=== PATIENT | female | born 1965 | race African-American/Black ===

== ENCOUNTER 2017-06-03 19:04 | Emergency (ER) | payer MEDICAID ==
[~2017-06-03] VITALS: Ht 160 cm; Wt 65.8 kg
[~2017-06-03 19:04] MED LIST: CLARITIN10 M1 ORAL; CLINDAMYCIN HC150 MG ORAL; MULTIVITAMINS1 EAC2 ORAL; NKM; RANITIDINE HCL150 MG ORAL
[2017-06-03 19:23] VITALS: BP 116/74
--- NOTE | 2017-06-03 19:41 | Emergency Room Report ---
History of Present Illness General Chief Complaint: Pain Source: Patient Present Illness HPI 52-year-old female presents to the emergency department complaining of 5/10 in severity localized sharp upper back pain that is exacerbated upon coughing, sneezing or taking a deep breath. Patient denies tenderness to palpation she denies fevers, chills she does report recent upper respiratory infection with moderate coughing. Patient denies fevers, chills, rashes, SOB or wheezing. Denies CP, Palpitations, LOC, AMS, dizziness, Changes in Vision, Sensation, paresthesias, or a sudden severe headache. Allergies: Coded Allergies: No Known Allergies (Unverified , 11/20/15) Patient History Past Medical History: see triage record Past Surgical History: none Pertinent Family History: none Now: No Reviewed Nursing Documentation: PMH: Agreed, PSxH: Agreed Nursing Documentation-PMH Past Medical History: No History, Except For Review of Systems All Other Systems: negative except mentioned in HPI Physical Exam Vital Signs Date Time Temp Pulse Resp B/P (MAP) Pulse Ox O2 Delivery O2 Flow Rate FiO2 06/03/17 19:08 97.3 72 18 116/74 100 Room Air Sp02 EP Interpretation: reviewed, normal General Appearance: no apparent distress, alert, GCS 15, non-toxic Head: normocephalic, atraumatic Eyes: bilateral eye normal inspection, bilateral eye PERRL ENT: hearing grossly normal, normal voice Neck: full range of motion Respiratory: chest non-tender, lungs clear, normal breath sounds, no respiratory distress, no accessory muscle use, no wheezing, speaking full sentences Cardiovascular #1: regular rate, rhythm, normal capillary refill Genitourinary: normal inspection, no CVA tenderness Musculoskeletal: back normal, gait/station normal, normal range of motion, non- tender Neurologic: alert, oriented x3, responsive, motor strength/tone normal, sensory intact, speech normal Skin: normal color, no rash, warm/dry, well hydrated Medical Decision Making PA Attestation Dr. Donohue is my supervising Physician whom patient management has been discussed with. Diagnostic Impression: Primary Impression: Chest wall muscle strain Qualified Codes: S29.011A - Strain of muscle and tendon of front wall of thorax, initial encounter ER Course 52-year-old female presents to the emergency department complaining of 5/10 in severity localized sharp upper back pain that is exacerbated upon coughing, sneezing or taking a deep breath. Patient denies tenderness to palpation she denies fevers, chills she does report recent upper respiratory infection with moderate coughing. Patient denies fevers, chills, rashes, SOB or wheezing. Denies CP, Palpitations, LOC, AMS, dizziness, Changes in Vision, Sensation, paresthesias, or a sudden severe headache. Ddx considered but are not limited to URI, pneumonia, PE, strep pharyngitis, meningitis, muscle strain, WA, PE just to name a few. Vital signs: Pt. is afebrile, the remaining VS are WNL H&PE are most consistent with - muscular strain of the chest wall from coughing. No cardiac rf's, no PE findings to suggest embolism. pt is NAD, non-toxic in appearance, in no respiratory distress. no meningeal signs, oropharynx is not involved, no evidence of bacterial infection at this time. ORDERS: none required at this time, the diagnosis is clinical ED INTERVENTIONS: -Toradol IM --PT. EDUCATION: Discussed antibiotic resistance with inappropriate prescribing of antibiotics for viral illnesses. Discussed signs and symptoms to indicate viral illness versus bacterial illness. DISCHARGE: At this time pt. is stable for d/c to home. Will provide printed patient care instructions, and any necessary prescriptions. Care plan and follow up instructions have been discussed with the patient prior to discharge. Last Vital Signs Date Time Temp Pulse Resp B/P (MAP) Pulse Ox O2 Delivery O2 Flow Rate FiO2 06/03/17 19:23 97.3 84 18 116/74 100 Room Air Disposition: HOME, SELF-CARE Condition: Stable Scripts Lidocaine (Lidoderm) 1 Each Adh..patch 1 PATCH TOPIC Q12HR, #20 PATCH 0 Refills Patch(es) may remain in place for up to 12 hours in any 24-hour period. Prov: Karlee Neff P.A. 06/03/17 Codeine/Promethazine Hcl* (PROMETHAZINE-CODEINE SYRUP*) 118 Ml Syrup 5 ML ORAL Q6H Y for For Cough, #120 ML 0 Refills Prov: Karlee Neff P.A. 06/03/17 Ibuprofen* (MOTRIN*) 600 Mg Tablet 600 MG ORAL THREE TIMES A DAY, #30 TAB 0 Refills Prov: Karlee Neff P.A. 06/03/17 Patient Instructions: Chest Wall Pain Additional Instructions: Take medications as directed. Follow up with a Primary Care Provider in 3-5 days, even if your symptoms have resolved. --Please review list of primary care clinics, if you do not already have a primary care provider Return sooner to ED if new symptoms occur, or current symptoms become worse. Do not drink alcohol, drive, or operate heavy machinery while taking cough syrup as this may cause drowsiness. - Please note that this Emergency Department Report was dictated using [employer] mercerizer operator helper technology software, occasionally this can lead to erroneous entry secondary to interpretation by the dictation equipment. Karlee Neff Jun 03, 2017 19:41
[2017-06-03] MEDS ORDERED: LIDODERM700 M1 TOPIC (19:42)
[2017-06-03] MEDS ORDERED: PROMETHAZINE-C118 M1 ORAL (19:42)
[2017-06-03] MEDS ORDERED: IBUPROFEN600 MG ORAL (19:42)
[2017-06-03] MEDS ORDERED: Ketorolac 60mg Inj IM ONE (19:45)
[2017-06-03 19:57] VITALS: BP 118/77
== END 2017-06-03 19:58 | disposition home or self-care (01) ==
LOC: EMR 19:50
DX: S29.011A Strain of muscle and tendon of front wall of thorax, initial encounter (principal); X58.XXXA Exposure to other specified factors, initial encounter; Y92.9 Unspecified place or not applicable
CPT/HCPCS: 96372; 99284

== ENCOUNTER 2017-06-06 19:24 | Emergency (ER) | payer MEDICAID ==
[~2017-06-06] VITALS: Ht 160 cm; Wt 65.8 kg
[~2017-06-06 19:24] MED LIST changes: +IBUPROFEN600 MG ORAL; +LIDODERM700 M1 TOPIC; +PROMETHAZINE-C118 M1 ORAL
[2017-06-06 19:30] VITALS: BP 135/63
[2017-06-06] MEDS ORDERED: DEPO-PROVE150 MG/1 M IM (19:32)
[2017-06-06] MEDS ORDERED: Ketorolac 30mg Inj IM ONE (20:00)
[2017-06-06] MEDS ORDERED: ROBAXIN-750750 MG PO (20:01)
[2017-06-06] MEDS ORDERED: IBUPROFEN600 MG ORAL (20:01)
[2017-06-06 20:12] VITALS: BP 135/63
--- NOTE | 2017-06-06 21:15 | Emergency Room Report ---
History of Present Illness General Chief Complaint: Pain Source: Patient Present Illness HPI The patient is a 52-year-old female presenting for left upper back pain which began one week prior. She was seen in this emergency department 3 days ago for the same complaint and given prescription for promethazine w/ codeine, motrin, and lidocaine patch but the patient states that she was unable to fill any medication besides the Motrin. She does state that pain has decreased and is a 2/10 dull ache at this point. Worse with shoulder movement and touch. She denies any injury to the area. She states that the pain began after hacing a chronic cough but is no longer coughing. SHe denies any other symptoms including N, V, F, chills, SOB, CP, abd pain Allergies: Coded Allergies: No Known Allergies (Unverified , 11/20/15) Patient History Past Medical History: see triage record Pertinent Family History: none Last Menstrual Period: 02/02/17 Now: No : 3 Para: 1 Reviewed Nursing Documentation: PMH: Agreed, PSxH: Agreed Nursing Documentation-PMH Past Medical History: No Stated History Review of Systems All Other Systems: negative except mentioned in HPI Physical Exam Vital Signs Date Time Temp Pulse Resp B/P (MAP) Pulse Ox O2 Delivery O2 Flow Rate FiO2 06/06/17 19:27 98.1 68 14 135/63 99 Room Air Sp02 EP Interpretation: reviewed, normal General Appearance: no apparent distress, alert, GCS 15, non-toxic Head: normocephalic, atraumatic Eyes: bilateral eye normal inspection, bilateral eye PERRL ENT: hearing grossly normal, normal pharynx, no angioedema, normal voice Neck: full range of motion, supple/symm/no masses Respiratory: chest non-tender, lungs clear, normal breath sounds, speaking full sentences Cardiovascular #1: regular rate, rhythm, no edema Musculoskeletal: normal inspection, back normal, gait/station normal, normal range of motion, non-tender, tender - L trapezius Neurologic: alert, oriented x3, responsive, motor strength/tone normal, sensory intact, speech normal Psychiatric: judgement/insight normal, memory normal, mood/affect normal, no suicidal/homicidal ideation Skin: normal color, no rash, warm/dry, well hydrated Medical Decision Making PA Attestation Dr. Stewart is my supervising physician. Patient management was discussed with my supervising physician Diagnostic Impression: Primary Impression: Muscle strain ER Course The patient is a 52-year-old female presenting for left upper back pain which began one week prior Ddx considered include but not limited to sprain/strain, fracture, contusion PE: NAD TTP over the L trapezius. Full AROM of neck and L shoulder Lungs CTA bilat RRR The patient is given toradol for pain with good relief. She is discharged home with prescription for Motrin and Robaxin and will followup with her primary doctor Last Vital Signs Date Time Temp Pulse Resp B/P (MAP) Pulse Ox O2 Delivery O2 Flow Rate FiO2 06/06/17 19:27 98.1 68 14 135/63 99 Room Air Status: improved Disposition: HOME, SELF-CARE Condition: Improved Scripts Methocarbamol* (ROBAXIN-750*) 750 Mg Tablet 750 MG PO TID, #21 TAB 0 Refills Prov: KATHERINE CARY P.A. 06/06/17 Ibuprofen* (MOTRIN*) 600 Mg Tablet 600 MG ORAL Q8H Y for For Pain, #30 TAB 0 Refills Prov: KATHERINE CARY P.A. 06/06/17 Referrals: [facility]ERR[facility] (PCP) Patient Instructions: Muscle Strain Additional Instructions: I discussed my findings with the patient. All questions and concerns have been answered. Treatment and medication compliance have been addressed. I advised the patient that they need to follow up with PMD in 3-5 days. Return to ED if symptoms worsen, new symptoms arise, or if needed for any reason. Patient verbalized understanding of discharge instructions. KATHERINE CARY Jun 06, 2017 21:15
== END 2017-06-06 20:12 | disposition home or self-care (01) ==
LOC: EMR 19:40
DX: S29.012A Strain of muscle and tendon of back wall of thorax, initial encounter (principal); X58.XXXA Exposure to other specified factors, initial encounter; Y92.9 Unspecified place or not applicable
CPT/HCPCS: 96372; 99284; J1885